=== PATIENT | male | born 1965 | race African-American/Black ===

== ENCOUNTER 2020-10-03 08:08 | Emergency (ER) | payer OTHER ==
[2020-10-03 08:17] VITALS: BP 139/87; PULSE 73; TEMP 98.1; BMI 27.3
[2020-10-03] MEDS ORDERED: KETOROLAC TROMETHAMINE 30 MG/1 ML VIAL IM ONE (08:28)
[2020-10-03] MEDS ORDERED: KETOROLAC TROMETHAMINE 30 MG/1 ML VIAL ONE (08:34)
== END 2020-10-03 09:05 | disposition home or self-care (01) ==
LOC: JER 08:08
PROC: 3E033NZ Introduction of Analgesics, Hypnotics, Sedatives into Peripheral Vein, Percutaneous Approach (ICD-10-PCS; principal; 2020-10-03)
DX: M54.5 Low back pain (principal)
CPT/HCPCS: 99284-25